=== PATIENT | male | born 1985 | race Asian ===

== ENCOUNTER 2019-03-30 07:55 | Emergency (ER) | payer SELFPAY ==
[~2019-03-30] VITALS: Ht 167.6 cm; Wt 72.6 kg
[2019-03-30 08:10] VITALS: BP 132/90
[2019-03-30] MEDS ORDERED: TETANUS-DIPTH-ACEL PERTUSSIS 0.5ML SYRG IM ONE (10:00)
== END 2019-03-30 10:05 | disposition home or self-care (01) ==
LOC: ER 07:58
DX: S51.832A Puncture wound without foreign body of left forearm, initial encounter (principal); W54.0XXA Bitten by dog, initial encounter; Y93.89 Activity, other specified; Y99.8 Other external cause status; Y92.89 Other specified places as the place of occurrence of the external cause
CPT/HCPCS: 90471; 90715